=== PATIENT | female | born 1940 | race Caucasian/White ===

== ENCOUNTER 2018-06-01 07:45 | Day surgery (SDC) | payer MEDICARE, OTHER ==
[~2018-06-01 07:45] MED LIST: Lactated Ringers 1,000 ML IV SCH; Lidocaine 1%/Sod Bicarbonate in NS 8.4% 1 ML Syringe IDERM PRN; Sodium Chloride 0.9% 10 ML Syringe FLUSH PRN
--- NOTE | 2018-06-01 08:03 | PCM.PREANE ---
Preanesthetic Assessment - Anesthesia/Transfusion/Family Hx Anesthesia History: Prior Anesthesia Without Reaction Family History of Anesthesia Reaction: No Transfusion History: No Prior Transfusion(s) - Review of Systems General: No Symptoms Pulmonary: No Symptoms Cardiovascular: No Symptoms Gastrointestinal: No Symptoms Neurological: No Symptoms Other: Reports: None - Physical Assessment NPO Status Date: 06/01/18 NPO Status Time: 04:00 Pulse: 95 O2 Sat by Pulse Oximetry: 100 Respiratory Rate: 16 Blood Pressure: 155/85 Temperature: 97.6 C ASA Class: 2 Mental Status: Alert & Oriented x3 Airway Class: Mallampati = 1 Dentition: Reports: Dentures (lower) Thyro-Mental Finger Breadths: 3 Mouth Opening Finger Breadths: 3 ROM/Head Extension: Full Lungs: Clear to Auscultation, Normal Respiratory Effort Cardiovascular: Regular Rate, Regular Rhythm - Allergies Allergies/Adverse Reactions: Allergies Allergy/AdvReac Type Severity Reaction Status Date / Time penicillin V Allergy Cannot Verified 05/31/18 16:53 Remember sulfacetamide Allergy Rash Verified 05/31/18 16:53 - Acknowledgements Anesthesia Type Planned: MAC Pt an Appropriate Candidate for the Planned Anesthesia: Yes Alternatives and Risks of Anesthesia Discussed w Pt/Guardian: Yes Pt/Guardian Understands and Agrees with Anesthesia Plan: Yes PreAnesthesia Questionnaire HEENT History: Reports: Impaired Vision, Other (See Below) Other HEENT History: wears glasses, has dentures Cardiovascular History: Reports: Hypertension, Other (See Below) Other Cardiovascular History: tachycardia Respiratory History: Reports: Asthma (pt states uses inhalers am and pm), Pneumonia, Recurrent Gastrointestinal History: Reports: Other (See Below) Other Gastrointestinal History: colon abnormality, gastric surgery Genitourinary History: Reports: None [employer] History: Reports: Other (See Below) Other OB/BYN History: ovarian cyst, , breast lumpectomy Musculoskeletal History: Reports: Arthritis, RA Neurological History: Reports: None Psychiatric History: Reports: None Endocrine/Metabolic History: Reports: Hypothyroidism, Osteopenia Hematologic History: Reports: Anemia, Iron Deficiency Immunologic History: Reports: None Oncologic (Cancer) History: Reports: Breast (2010) Dermatologic History: Reports: None - Past Surgical History Head Surgeries/Procedures: Reports: None HEENT Surgical History: Reports: Cataract Surgery, Tonsillectomy Cardiovascular Surgical History: Reports: None Respiratory Surgical History: Reports: None GI Surgical History: Reports: Colonoscopy Female Surgical History: Reports: Breast Biopsy, Other (See Below) ((L) breast lumpectomy) Endocrine Surgical History: Reports: None Neurological Surgical History: Reports: None Musculoskeletal Surgical History: Reports: Other (See Below) Other Musculoskeletal Surgeries/Procedures:: foot surgery Oncologic Surgical History: Reports: None Dermatological Surgical History: Reports: None - SUBSTANCE USE Smoking Status *Q: Never Smoker Recreational Drug Use History: No - HOME MEDS Home Medications: Home Meds Albuterol [IJD: Ventolin HFA] 1 - 2 puff INH Q4HR PRN 07/25/15 [History] Aspirin 81 mg PO DAILY 07/25/15 [History] Letrozole 2.5 mg PO DAILY 07/25/15 [History] Losartan [Cozaar] 100 mg PO DAILY 07/25/15 [History] Methotrexate Sodium [Methotrexate] 10 mg PO WE 07/25/15 [History] Naproxen 500 mg PO Q12H PRN 07/25/15 [History] Sertraline HCl 25 mg PO DAILY 07/25/15 [History] traMADol HCl [Tramadol HCl] 50 mg PO Q6H PRN 07/25/15 [History] Acetaminophen [Tylenol Arthritis] 650 mg PO DAILY PRN 05/31/18 [History] Ca Carbonate/Vitamin D3/Vit K [Calcium + D Soft Chewable Tab] 1 tab PO DAILY [History] Folic Acid 0.4 mg PO DAILY 05/31/18 [History] Hydroxychloroquine [Plaquenil] 200 mg PO DAILY 05/31/18 [History] Iron 36 mg PO DAILY 05/31/18 [History] Levothyroxine [Synthroid] 100 mcg PO DAILY 05/31/18 [History] Omeprazole Magnesium [Prilosec Otc] 20 mg PO DAILY 05/31/18 [History] - CURRENT (IN HOUSE) MEDS Current Meds: Current Medications Lactated Ringer's (Ringers, Lactated) 1,000 mls @ 125 mls/hr IV ASDIRECTED KEVYN Stop: 06/01/18 23:00 Lidocaine/Sodium Bicarbonate (Buffered Lidocaine 1% In Ns 8.4%) 0.25 ml IDERM ONETIME PRN PRN Reason: Prior to IV Start Stop: 06/01/18 18:00 Sodium Chloride (Saline Flush) 10 ml FLUSH ASDIRECTED PRN PRN Reason: Keep Vein Open Stop: 06/01/18 18:00
[2018-06-01] MEDS ORDERED: Lidocaine 1% 2 ML ONE ×2 (08:17→08:18)
[2018-06-01] MEDS ORDERED: Propofol 200 MG/20 ML SDV ONE ×4 (08:17→09:35)
--- NOTE | 2018-06-01 09:51 | PCM48HPAN ---
Post Anesthesia Note - EVALUATION WITHIN 48HRS OF ANESTHETIC Vital Signs in Normal Range: Yes Patient Participated in Evaluation: Yes Respiratory Function Stable: Yes Airway Patent: Yes Cardiovascular Function Stable: Yes Hydration Status Stable: Yes Pain Control Satisfactory: Yes Nausea and Vomiting Control Satisfactory: Yes Mental Status Recovered: Yes Pulse Rate: 66 SaO2: 100 Resp Rate: 16 Temperature: 97.6 C Blood Pressure: 119/77 Pulse Rate: 66
[2018-06-01] MEDS ORDERED: Barium Sulfate 105% w/v Susp 1,900 ML Bottle PO ONE (10:17)
[2018-06-01 10:38] VITALS: BP 126/80
--- NOTE | 2018-06-02 08:06 | OR ---
DATE OF OPERATION: 06/01/2018 SURGEON: Jessica Sutherland MD PREOPERATIVE DIAGNOSIS: Heme-positive stool. POSTOPERATIVE DIAGNOSIS: 1. Several telangiectasias. 2. Melanosis coli. 3. Several areas of dilated superficial veins. 4. Incomplete colonoscopy, could only get to the hepatic flexure due to redundancy of her sigmoid. OPERATION PERFORMED: Colonoscopy with random biopsies up until at the hepatic flexure. ANESTHESIA: IV sedation. ESTIMATED BLOOD LOSS: None. BRIEF HISTORY: This is a pleasant 78-year-old female, who had a normal colonoscopy 11 years ago, but now has a heme-positive stool. I had the opportunity to discuss the risks and benefits that she agreed to proceed. DESCRIPTION OF PROCEDURE: IV sedation was begun. Time-out had been performed. She was placed on her left side down. She had several little skin tags consistent with old hemorrhoid disease. Digital exam demonstrated no mass. We then began the process. Clearly, when we passed the scope, we could see she has melanosis coli. Unfortunately, she had a very redundant and steep curve in her sigmoid colon, which took us a long time with a lot of negotiating in different positions and being very careful to move the camera along. She had very active peristalsis, but once we got just to the splenic flexure, it was difficult to maneuver. After about 30 minutes, we were able to finally negotiate and drop the scope into the transverse colon. Interestingly enough, then by putting her on her back, I was able to get the scope all the way to the hepatic flexure, but I could not drop it into the right colon. We worked for a long period of time again to being careful not insufflate too much as well as to go ahead and try to reposition with digital pressure, etc., all of these failed. So what I elected to do was to abort after working for over an hour. At this time, we were very careful not to insufflate much air. Her colonoscopy prep was very good. So, from the hepatic flexure down, I could say there were no signs of any ulcerations. There were several little telangiectasias in the sigmoid colon. I did not see any marked diverticular disease and I did not see any polyps from what I could see from the hepatic flexure on out. There are signs of melanosis coli, so I did a random biopsy of the rectum, the sigmoid, as well as part of I believe what was the left colon, we will have to see the markings. In any event, I then got a good look at the rectum. I did not retroflex. I attempted to, but could not, but I was able to get time to get a good look at the rectum and again I did not see any large polyps throughout where I saw. What we are going to do at this point is we will go ahead and have her get a barium enema to see if we can get a good look at that cecum at this point in time. She tolerated the procedure well. Her abdomen was soft at the end of the completion and will go from here. MMODAL /[id number]
== END 2018-06-01 10:23 | disposition home or self-care (01) ==
LOC: JD.SDS 07:45
PROVIDERS: ATTEND Surgery
DX: R19.5 Other fecal abnormalities (principal); I78.1 Nevus, non-neoplastic; K63.89 Other specified diseases of intestine; I10 Essential (primary) hypertension; J45.909 Unspecified asthma, uncomplicated; E03.9 Hypothyroidism, unspecified; D50.9 Iron deficiency anemia, unspecified; F32.9 Major depressive disorder, single episode, unspecified; M06.9 Rheumatoid arthritis, unspecified; Z85.3 Personal history of malignant neoplasm of breast; Z79.82 Long term (current) use of aspirin; Z79.899 Other long term (current) drug therapy; Z90.12 Acquired absence of left breast and nipple; Z88.0 Allergy status to penicillin; Z79.890 Hormone replacement therapy
CPT/HCPCS: 45380; J2001; J2704; J7120; 00812

== ENCOUNTER 2023-04-06 08:45 | Day surgery (SDC) | payer MEDICARE, BC ==
[~2023-04-06 08:45] MED LIST changes: -Lactated Ringers 1,000 ML IV SCH; -Lidocaine 1%/Sod Bicarbonate in NS 8.4% 1 ML Syringe IDERM PRN; +Sodium Chloride 0.9% 10 ML Syringe FLUSH SCH
[2023-04-06] MEDS ORDERED: Lactated Ringers 1,000 ML ONE (09:12)
[2023-04-06] MEDS ORDERED: Propofol 200 MG/20 ML SDV ONE (09:12)
[2023-04-06] MEDS ORDERED: ceFAZolin 2 GM Vial ONE (09:12)
[2023-04-06] MEDS ORDERED: Midazolam 1 MG/ML 2 ML SDV ONE (09:13)
[2023-04-06] MEDS: Lactated Ringers 1,000 ML IV SCH (09:15)
[2023-04-06] MEDS ORDERED: Ropivacaine 0.5% 5 MG/ML 30 ML SDV ONE (10:32)
[2023-04-06] MEDS ORDERED: EPINEPHrine 1 MG/ML SDV ONE (10:32)
[2023-04-06] MEDS ORDERED: dexmedeTOMIDine HCl 200 MCG/2 ML SDV ONE (10:32)
[2023-04-06 10:44] LABS: BASOPHILS PERCENT AUTO 0.7 % (0.0-1.0); EOSINOPHILS ABSOLUTE AUTO 0.1 K/mm3 (0.0-0.4); EOSINOPHILS PERCENT AUTO 1.4 % (0.0-6.0); HEMATOCRIT 32.2 % (37.0-47.0); HEMOGLOBIN 11.5 gm/dl (12.0-16.0); IMMATURE GRAN ABSOLUTE AUTO 0.02 K/mm3 (0.00-0.05); IMMATURE GRAN PERCENT AUTO 0.4 % (0.0-0.4); LYMPHOCYTES ABSOLUTE AUTO 0.8 K/mm3 (1.0-4.8); LYMPHOCYTES PERCENT AUTO 13.9 % (24.0-44.0); MEAN CORPUSCULAR HEMOGLOBIN 36.7 pg (28.0-32.0); MEAN CORPUSCULAR HGB CONC 35.7 g/dl (32.0-36.0); MEAN CORPUSCULAR VOLUME 102.9 fl (83.0-99.0); MEAN PLATELET VOLUME 8.1 fl (9.4-12.3); MONOCYTES ABSOLUTE AUTO 0.4 K/mm3 (0.0-0.8); MONOCYTES PERCENT AUTO 6.8 % (0.0-8.0); NEUTROPHILS ABSOLUTE AUTO 4.4 K/mm3 (1.8-7.7); NEUTROPHILS PERCENT AUTO 76.8 % (41.0-71.0); PLATELET COUNT,PLT 112 K/mm3 (150-400); RED BLOOD CELL COUNT 3.13 M/mm3 (4.10-5.30)
[2023-04-06] MEDS: Morphine 8 MG, EPINEPHrine 0.3 MG, Cefuroxime 750 MG, Ketorolac 30 MG, Sodium Chloride ... PRN (12:14)
[2023-04-06] MEDS: Vancomycin 1 GM SDV ONE (12:15)
[2023-04-06] MEDS: Tranexamic Acid 1,000 MG/10 ML Vial ONE (12:15)
[2023-04-06] MEDS ORDERED: Ondansetron 4 MG/2 ML SDV ONE (12:27)
[2023-04-06] MEDS ORDERED: HYDROmorphone 0.5 MG/0.5 ML Syringe IVPUSH PRN (12:54)
[2023-04-06] MEDS: fentaNYL 100 MCG/2 ML SDV IVPUSH PRN (13:00)
[2023-04-06] MEDS: Ondansetron 4 MG/2 ML SDV IVPUSH PRN (13:20)
[2023-04-06 15:44] VITALS: BP 97/61; PULSE 66
== END 2023-04-06 15:20 | disposition home or self-care (01) ==
LOC: JD.SDS 08:45
PROVIDERS: ATTEND Orthopaedic Surgery
DX: M17.12 Unilateral primary osteoarthritis, left knee (principal); J45.909 Unspecified asthma, uncomplicated; I10 Essential (primary) hypertension; K21.9 Gastro-esophageal reflux disease without esophagitis; E03.9 Hypothyroidism, unspecified; D63.8 Anemia in other chronic diseases classified elsewhere; M81.0 Age-related osteoporosis without current pathological fracture; M06.9 Rheumatoid arthritis, unspecified; D69.6 Thrombocytopenia, unspecified; Z79.890 Hormone replacement therapy; Z79.899 Other long term (current) drug therapy; Z88.0 Allergy status to penicillin; Z88.2 Allergy status to sulfonamides
CPT/HCPCS: 01402; 36415; 64447; 73560-26-LT; 73560-LT; 85025; 87641; 97110-GP; 97116-GP; 97161-GP; 99100; C1713; C1776; J0171; J0690; J0697; J1885; J2250; J2270; J2405; J2704; J2795; J3010; J3370; J3490; J7030; J7120